=== PATIENT | female | born 1960 | race Asian ===

== ENCOUNTER → 2016-07-17 | Outpatient (CLI) | payer BC ==
[~2016-07-17] MED LIST: CLC150 PO; DICL-201 PO
--- NOTE | 2016-07-17 16:21 | DIAGNOSTIC IMAGING REPORT ---
ORBITS BILATERAL MIN 4 VIEWS CLINICAL HISTORY: Periorbital pain. COMPARISON STUDY: No previous studies for comparison. FINDINGS: No radiopaque foreign bodies are visualized. No bony destructive changes are visualized. There is no evidence of orbital emphysema. There is no conventional radiographic evidence of acute sinusitis. IMPRESSION: Unremarkable conventional radiographic evaluation of the orbits Electronically signed by: Ted May M.D. 07/17/2016 4:20 PM Dictated Date/Time: 07/17/2016 4:19 PM
--- NOTE | 2016-07-17 16:22 | DIAGNOSTIC IMAGING REPORT ---
SINUSES MIN 3 VIEWS ROUTINE CLINICAL HISTORY: Left-sided periorbital pain COMPARISON STUDY: No previous studies for comparison. FINDINGS: No fractures are visualized. There is no orbital emphysema. There is no evidence of acute sinusitis. No destructive lesions are evident. IMPRESSION: No conventional radiographic evidence of sinusitis. Electronically signed by: Ted May M.D. 07/17/2016 4:21 PM Dictated Date/Time: 07/17/2016 4:20 PM
== END | disposition home or self-care (01) ==
LOC: C.RAD 15:41
PROVIDERS: ATTEND Ophthalmology
DX: H57.12 Ocular pain, left eye (principal)

== ENCOUNTER → 2016-10-08 | Outpatient (CLI) | payer BC | END | disposition home or self-care (01) | LOC: C.MAMM 14:10 | PROVIDERS: ATTEND Internal Medicine | DX: Z00.00 Encounter for general adult medical examination without abnormal findings (principal); Z78.0 Asymptomatic menopausal state; M85.89 Other specified disorders of bone density and structure, multiple sites ==

== ENCOUNTER → 2016-10-17 | Outpatient (CLI) | payer BC | END | disposition home or self-care (01) | LOC: C.PAPS 09:15 | PROVIDERS: ATTEND Physician Assistant | DX: Z01.419 Encounter for gynecological examination (general) (routine) without abnormal findings (principal) ==

== ENCOUNTER → 2016-12-19 | Outpatient (CLI) | payer BC ==
[~2016-12-19] MED LIST changes: -DICL-201 PO
--- NOTE | 2016-12-19 11:42 | DIAGNOSTIC IMAGING REPORT ---
CERVICAL WITHOUT CONTRAST CLINICAL HISTORY: 56-year-old female with history of right arm and neck pain. TECHNIQUE: Multisequence, multiplanar MR imaging of the cervical spine was performed without the use of intravenous contrast. COMPARISON: CT from 2010. FINDINGS: Straightening of normal cervical lordosis. Vertebral body heights, bone marrow signal intensity, and alignment otherwise preserved. Mild intervertebral disc desiccation at C6-7. No abnormal increased signal intensity within this spaces or facet joints. Multilevel degenerative changes in the lower cervical spine with mild thickening of the posterior longitudinal ligament, further described below: C2-3: Normal. C3-4: Small disc osteophyte complex and uncovertebral hypertrophy result in mild bilateral neural foraminal narrowing and mild effacement of the ventral thecal sac. C4-5: Small disc osteophyte complex and right uncovertebral hypertrophy results in mild right neural foraminal narrowing with abutment of the exiting C5 nerve root. Mild effacement of the ventral thecal sac. C5-6: Disc osteophyte complex and uncovertebral hypertrophy result in effacement of the ventral thecal sac and mild contouring of the spinal cord. No spinal cord impingement or significant flattened morphology. Mild left neural foraminal narrowing. C6-7: Disc osteophyte complex and uncovertebral hypertrophy result in mild effacement of the ventral thecal sac eccentrically on the right and mild effacement of the right lateral recess. C7-T1: No neural foraminal narrowing or spinal canal stenosis. Bilateral perineural cysts. Spinal cord maintains normal morphology and signal intensity other than slight contouring at C5-6. No spinal cord impingement. Craniocervical junction normal. Paraspinal soft tissues within normal limits. IMPRESSION: 1. Multilevel degenerative changes including disc osteophyte complexes and uncovertebral hypertrophy. Mild multilevel neural foraminal narrowing and spinal canal stenosis further described above. No spinal cord impingement. Electronically signed by: Justin Mcnair M.D. 12/19/2016 11:40 AM Dictated Date/Time: 12/19/2016 11:26 AM
== END | disposition home or self-care (01) ==
LOC: C.MRIBC 10:18
PROVIDERS: ATTEND Orthopaedic Surgery
DX: M54.2 Cervicalgia (principal); M79.601 Pain in right arm